=== PATIENT | female | born 1960 | race Caucasian/White ===

== ENCOUNTER → 2023-09-02 | Outpatient (CLI) | payer BC, SELFPAY ==
[2023-09-02 10:34] LABS: Absolute Neutrophil Count 3.4 X10^3/uL (2.0-7.7); Basophil# 0.05 X10^3/uL; Basophil% 0.9 % (0-1); Eosinophil# 0.18 X10^3/uL; Eosinophils% 3.4 % (0-5); Hematocrit 38.4 % (37-47); Hemoglobin 12.6 g/dL (12.0-15.0); Lymphocyte % 24.5 % (19-41); Mean Corp Hgb Conc 32.8 g/dL (32-36); Mean Corpuscular Hgb 30.9 pg (27.0-32.0); Mean Corpuscular Volume 94.1 fL (81-99); Mean Platelet Vol. 9.9 fl (6.2-12.0); Monocyte# 0.39 X10^3/uL; Monocyte% 7.3 % (0-10); NRBC Flagged by Analyzer 0 % (0-5); Neutrophil # 3.38 X10^3/uL (2.7-7.7); Neutrophil % 63.7 % (47-70); Platelet Count 276 K/mm3 (150-450); RBC Distribution Width CV 12.5 % (11.6-14.6); RBC Distribution Width SD 43.4 fl (35.1-43.9); Red Blood Count 4.08 M/mm3 (4.2-5.4); White Blood Count 5.3 K/mm3 (4.4-11.0)
[2023-09-02 10:59] LABS: ALB/GLOB Ratio 0.8 RATIO (0.9-2.4); AST(SGOT) 19 U/L (15-37); Alanine Aminotransfer ALT/SGPT 24 U/L (13-56); Albumin, Serum 3.5 g/dL (3.2-5.0); Alkaline Phosphatase 73 U/L (45-117); Anion Gap 7 (5-15); BUN 14 mg/dL (7-18); BUN/Creat Ratio 18.6 RATIO (10-20); Calcium,Total 8.9 mg/dL (8.5-10.1); Chloride 106 mmol/L (98-107); Cholesterol 202 mg/dL (200); Creatinine, Serum 0.75 mg/dL (0.55-1.02); EST Glomerular Filtration Rate 83 mL/min (>60); Est Glom Filt Rate - Afr Amer 100 mL/min (>60); Globulin 4.2 g/dL (2.2-4.2); Glucose 99 mg/dL (74-106); High Density Lipoprotein 84 mg/dL; Potassium 3.7 mmol/L (3.5-5.1); Protein, Total 7.7 g/dL (6.4-8.2); Sodium Level 139 mmol/L (136-145); Thyroid Stim Hormone (TSH) 0.81 uIU/mL (0.358-3.74); Triglycerides 66 mg/dL; Very Low Density Lipoprotein 13 mg/dL (5-40)
[2023-09-02 13:43] LABS: Vitamin D,25 Hydroxy 38.8 ng/mL
== END | disposition home or self-care (01) ==
PROVIDERS: PCP Family Medicine; Visit Provider Family Medicine
DX: Z13.220 Encounter for screening for lipoid disorders (principal); I10 Essential (primary) hypertension; Z78.0 Asymptomatic menopausal state
CPT/HCPCS: 36415; 80053; 80061; 82306; 84443; 85025

== ENCOUNTER → 2023-10-04 | Outpatient (CLI) | payer BC, SELFPAY ==
[2023-10-08 12:09] LABS: HPV APTIMA, High Risk Negative (Negative)
[2023-10-10 17:15] LABS: HPV Reflexed? YES, CHARGE PATIENT
== END | disposition home or self-care (01) ==
PROVIDERS: PCP Family Medicine; Visit Provider Nurse Practitioner Family
DX: Z01.419 Encounter for gynecological examination (general) (routine) without abnormal findings (principal)
CPT/HCPCS: 87624; 88175; G0145

== ENCOUNTER → 2023-10-27 | Outpatient (CLI) | payer BC, SELFPAY ==
--- NOTE | 2023-10-27 14:28 | BI_ITS ---
MAMMOGRAPHY - BILATERAL SCREENING REASON FOR EXAM: Female, 63 years old. Routine annual screening examination. PERTINENT HISTORY: Non-contributory. TECHNIQUE: Digital bilateral breast yvette (3D mammographic acquisition) in the CC and MLO projections. 2-D mediolateral oblique (MLO) and craniocaudad (CC) views of both breasts were obtained. CAD: Full Field Digital Mammography with Computer Added Detection was performed. COMPARISON: Comparison is made with prior outside examination dated February 19, 2008. FINDINGS: Breast Composition: There are scattered areas of fibroglandular density. There are no dominant masses or suspicious calcifications. Stable bilateral fat containing axillary lymph nodes. No other significant abnormalities are identified. BI/SCRN MAMM (CAD)W/YVETTE BILAT IMPRESSION: Stable bilateral screening mammogram. Yearly follow-up mammogram recommended. (A) ASSESSMENT CATEGORY: BIRADS Category 2: Benign. A letter regarding these results will be sent to the patient by the facility within 30 days. Approximately 10% of breast cancers are not detected by mammography. A normal mammogram should not delay biopsy of a clinically suspicious abnormality. [id number] Electronically Signed: Jeremy Almaguer MD at 15:08 EDT ,
== END | disposition home or self-care (01) ==
LOC: OPBI 14:26
PROVIDERS: PCP Family Medicine; Referring Provider Family Medicine; Visit Provider Family Medicine
DX: Z12.31 Encounter for screening mammogram for malignant neoplasm of breast (principal)
CPT/HCPCS: 77063; 77067

== ENCOUNTER 2024-02-13 07:38 | Day surgery (SDC) | payer BC, SELFPAY ==
[2024-02-13] VITALS (7 sets, daily range): BP systolic 115–171; BP diastolic 68–82; PULSE 71–76; RESP 16; TEMP 36.2–36.9; O2SAT 96–100
--- NOTE | 2024-02-13 | COLBX_PTH ---
PATIENT: DEN PEREIRA LOC: EN U#:[id number] AGE/SX: 63/F ROOM: RE02/13/[address]: Dr. Leora Parekh MD : 1960 BED: DIS: 02/13/2024 SPEC #: [id number] RECD: 02/13/24 13:09 STATUS: MIAH TOI #: [id number] NUSRAT: 02/13/24 00:[address]: Leora Parekh DEPT: SURGICAL PATHOLOGY RECD BY: Memo Saldana ENTERED: 02/13/24 13:09 SP TYPE: COLON BX OTHR DR: Jose Guadalupe Blake MD Tissues: Sigmoid colon biopsy Procedures: Surgery Specimen Level IV HEADER OPERATION: Colonoscopy with polypectomy PRE-OP DIAGNOSIS: Encounter for screening for malignant neoplasm of colon TISSUE SUBMITTED: Sigmoid colon polyp MICROSCOPIC DIAGNOSIS Sigmoid colon polyp, polypectomy: Tubular adenoma. 02/14/2024 MICROSCOPIC DESCRIPTION Slides are reviewed. GROSS DESCRIPTION Received in fixative is one container labeled with the patient's name and designated Sigmoid colon polyp. The specimen consists of one irregular fragment of light hercules soft tissue that measures 0.3 x 0.3 x 0.1 cm. The specimen is totally submitted in one cassette. 02/13/2024 TC:5 CPT:52841
--- NOTE | 2024-02-13 08:16 | PRE.ANES_ITS ---
ASA Classification* ASA Classification ASA Classification: 2 Assessment & Plan Anesthesia* Anesthesia Assessment Anesthesia Assessment: Discussed sedation and/or anesthesia options, risks, benefits, and alternatives with patient/parents/legal guardian/POA. Questions invited. The patient/parents/legal guardian/POA seems to understand and agrees to proceed with anesthesia plan. Reviewed the physical assessment, medical history, allergy history and patient home medications list prior to surgery/procedure/anesthetic and documented any changes. Performed airway and anesthesia risk assessments. Anesthesia Type Anesthesia Type: MAC Anesthesia Focused Assessment* Airway Assessment Mouth opens: >3 cm Mallampati Score: II Focused Labs Anesthesia Preop lab: CBC WBC 5.3 K/mm3 (4.4-11.0) 09/02/23 09:04 RBC 4.08 M/mm3 (4.2-5.4) L 09/02/23 09:04 Hgb 12.6 g/dL (12.0-15.0) 09/02/23 09:04 Hct 38.4 % (37-47) 09/02/23 09:04 Plt Count 276 K/mm3 (150-450) 09/02/23 09:04 CHEMISTRY Potassium 3.7 mmol/L (3.5-5.1) 09/02/23 09:04 Sodium 139 mmol/L (136-145) 09/02/23 09:04 BUN 14 mg/dL (7-18) 09/02/23 09:04 Creatinine 0.75 mg/dL (0.55-1.02) 09/02/23 09:04 Glucose 99 mg/dL (74-106) 09/02/23 09:04 TSH 0.81 uIU/mL (0.358-3.74) 09/02/23 09:04 COAG Pre-Assessment Diagnosis/Proposed Procedure Planned Operative Procedure(s): CSCOPE OA Anesthesia History Anesthesia History - 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 When Was Last Pacemaker Check QUESTION #4 FULL TEXT: You/Your Family Experience fever (hyperthermia) with Anesthesia Last Oral Intake Last Oral intake: Last Oral Intake NPO since Meds taken in AM with sips of water? Meds patient instructed to take am of surgery PONV PONV - deckhand fishing vessel: PONV - deckhand fishing vessel Female Yes 02/08/24 10:33 HX of Motion Sickness No 02/08/24 10:33 HX of N/V After Surgery No 02/08/24 10:33 Non-Smoker Yes 02/08/24 10:33 Duration of Surgery greater No 02/08/24 10:33 than 60 minutes Number of Risk Factors 2 02/08/24 10:33 PONV Score Moderate Risk 02/08/24 10:33 Height & Weight Height & Weight: Anesthesia: Height & Weight Height 5 ft 1 in 12/19/23 14:29 Respiratory Assessment Respiratory Assessment - deckhand fishing vessel: Respiratory Tract Infection Hx - deckhand fishing vessel Hx Respiratory Tract Infection No 02/08/24 10:33 STOP Sleep Apnea STOP Sleep Apnea - deckhand fishing vessel: STOP Sleep Apnea - deckhand fishing vessel Hx Hypertension No 02/08/24 10:33 Hx Sleep Apnea No 02/08/24 10:33 CPAP BIPAP Do you snore loudly (louder No 02/08/24 10:33 than talking or can be heard Do you often feel tired/ No 02/08/24 10:33 fatigued/ sleepy during daytime? Has anyone observed you stop No 02/08/24 10:33 breathing during sleep? STOP Results Negative 02/08/24 10:33 QUESTION #5 FULL TEXT : Do you snore loudly (louder than talking or can be heard through closed doors)? 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 Specify any problems Hx of Preganancy in last 3 No 02/08/24 10:33 Months Nurse Filling Out Transfusion DSCHRIBER 02/08/24 10:33 & Questions: Date: 02/08/24 02/08/24 10:33 Time: 10:34 02/08/24 10:33 Patient unable to answer at this time (ie. confused, unrespo /Reproduction History /Reproductive History - deckhand fishing vessel: /Reproductive Hx- deckhand fishing vessel Hx Now No 02/08/24 10:33 Gestational Age (in weeks): EDC: Hx Hx Para Hx Section SAB No 02/08/24 10:33 PFSH Medical History Wears glasses Post-menopausal Former smoker Hx of fracture of ankle Home Medications ?Medication ?Instructions ?Recorded ?Last Taken ?Type fexofenadine 60 mg-pseudoephedrine 1 tab PO DAILY 12/19/23 02/12/24 History ER 120 mg tablet,ext.release,12 hr (Johanna-D 12 Hour) Allergy/AdvReac Type Severity Reaction Status Date / Time No Known Allergies Allergy Verified 02/13/24 08:09 Social History household members: spouse number of children: 2 current occupational status: employed current occupation: [employer] Smoking Status: Former smoker alcohol intake: never substance use type: does not use Review of Systems (Anesthesia) ROS Narrative System reviewed and no additional complaints, except as documented.
--- NOTE | 2024-02-13 08:33 | H&P.OPEN ---
[facility] - General General Date of Service: 02/13/24 HPI Narrative DEN PEREIRA, is a 63 F who presents for screening colonoscopy. Patient never had previous colonoscopy. Patient denies any family history of colon cancer. Patient denies any chronic abdominal pain/nausea/vomiting/reflux. Patient has bowel movements daily denies any blood. [facility] Medical History Wears glasses Post-menopausal Former smoker Hx of fracture of ankle Home Medications ?Medication ?Instructions ?Recorded ?Last Taken ?Type fexofenadine 60 mg-pseudoephedrine 1 tab PO DAILY 12/19/23 02/12/24 History ER 120 mg tablet,ext.release,12 hr (Johanna-D 12 Hour) Allergy/AdvReac Type Severity Reaction Status Date / Time No Known Allergies Allergy Verified 02/13/24 08:09 Social History household members: spouse number of children: 2 current occupational status: employed current occupation: [employer] Smoking Status: Former smoker alcohol intake: never substance use type: does not use Past Medical/Surgical History Planned Operation Planned Operative Procedure(s): CSCOPE OA Previous Hospitalizations/Surgeries HX Hospitalizations: No Any Problems With Anesthesia: No You/Your Family Experience Fever (Hyperthermia) With Anes: No Cholinesterase deficiency: No Cardiovascular Hx Hypertension: No Respiratory Hx Sleep Apnea: No Hx Respiratory Tract Infection/Cold (presently): No Do You Snore Loudly (louder than talking or can be heard): No Do You Often Feel Tired/ Fatigued/ Sleepy Dring Daytime?: No Has Anyone Observed You Stop Breathing During Sleep?: No Result (for STOP score): Negative Smoking Status: Former smoker Neurological Does patient have nerve stimulator: No Reproduction : No Miscellaneous Recent Exposure to Contagious Disease: No Allergies No Known Allergies Allergy (Verified 02/13/24 08:09) Discharge Is Pt Admitted From a Fdc, or a Custodial: No After D/C, Where Do you Plan to Go: Return Home Vital Signs Vital Signs Vital Signs: 02/13/24 08:10 Respiratory Pattern Normal Physical Exam Const alert, oriented x3 and no apparent distress HEENT normocephalic and head/scalp atraumatic Resp normal respiratory effort Cardio regular rate GI soft to palpation and non-tender; Negative for non-distended Palpation: Negative for guarding Extremity no clubbing, cyanosis or edema Skin no rashes or lesions noted Neuro CN's II-XII intact bilaterally Psych mental status grossly normal Assessment & Plan Assessment/Plan (1) Encounter for screening for malignant neoplasm of colon: Surgery Risks - Colonoscopy I discussed with the patient the risks of the procedure: Yes Risks Include but are not Limited To: Risks include but are not limited to: Bleeding, perforation requiring further surgery, inability to complete colonoscopy requiring barium enema.
--- NOTE | 2024-02-13 09:34 | OP.CCLET_ITS ---
02/13/2024 Jose Guadalupe Blake Md Re : Colonoscopy procedure for Tia Nicholas Dear Hayden This procedure was performed on Tuesday, February 13, 2024. My impressions and recommendations are as follows: Impressions : - Hemorrhoids found on perianal exam. - Non-bleeding external hemorrhoids. - One less than 5 mm polyp in the sigmoid colon, removed with a hot snare. Resected and retrieved. - The examination was otherwise normal on direct and retroflexion views. Recommendations : - Discharge patient to home. - Resume previous diet. - Continue present medications. - Await pathology results. - Repeat colonoscopy in 5 years for surveillance based on pathology results. My findings are described in the full procedure note, which is enclosed. If I can be of further assistance, please feel free to contact me at Doctor phone number(s): , Work: . Sincerely, MD Leora Garcia MD 02/13/2024 9:33:47 AM This report has been signed electronically.
--- NOTE | 2024-02-13 09:34 | OP.COLON_ITS ---
Patient Name: Tia Nicholas Procedure Date: 02/13/2024 9:08 AM Date of : 1960 Age: 63 Procedure: Colonoscopy Indications: Screening for colorectal malignant neoplasm Providers: Leora Parekh MD Medicines: Monitored Anesthesia Care Patient Profile: This is a 63 year old female. Last Colonoscopy: none. The patient's first colonoscopy is today. Complications: No immediate complications. Procedure: Pre-Anesthesia Assessment: - Prior to the procedure, a History and Physical was performed, and patient medications and allergies were reviewed. The patient's tolerance of previous anesthesia was also reviewed. The risks and benefits of the procedure and the sedation options and risks were discussed with the patient. All questions were answered, and informed consent was obtained. Prior Anticoagulants: The patient has taken no anticoagulant or antiplatelet agents. ASA Grade Assessment: Per anesthesia. After reviewing the risks and benefits, the patient was deemed in satisfactory condition to undergo the procedure. After I obtained informed consent, the scope was passed under direct vision. Throughout the procedure, the patient's blood pressure, pulse, and oxygen saturations were monitored continuously. The was introduced through the anus and advanced to the cecum, identified by the appendiceal orifice, ileocecal valve and palpation. The colonoscopy was performed without difficulty. The patient tolerated the procedure well. The quality of the bowel preparation was good. Scope In: 9:17:09 AM Scope Withdrawal Time 0 hours 6 minutes 57 seconds Scope Out: 9:27:43 AM Total Procedure Duration Time 0 hours 10 minutes 34 seconds Findings: Hemorrhoids were found on perianal exam. Non-bleeding external hemorrhoids were found. The hemorrhoids were small. A less than 5 mm polyp was found in the sigmoid colon. The polyp was sessile. The polyp was removed with a hot snare. Resection and retrieval were complete. The exam was otherwise without abnormality on direct and retroflexion views. Impression: - Hemorrhoids found on perianal exam. - Non-bleeding external hemorrhoids. - One less than 5 mm polyp in the sigmoid colon, removed with a hot snare. Resected and retrieved. - The examination was otherwise normal on direct and retroflexion views. Recommendation: - Discharge patient to home. - Resume previous diet. - Continue present medications. - Await pathology results. - Repeat colonoscopy in 5 years for surveillance based on pathology results. Procedure Code(s): --- Professional --- 25847, PT, Colonoscopy, flexible; with removal of tumor(s), polyp(s), or other lesion(s) by snare technique Diagnosis Code(s): --- Professional --- Z12.11, Encounter for screening for malignant neoplasm of colon K64.4, Residual hemorrhoidal skin tags D12.5, Benign neoplasm of sigmoid colon CPT copyright 2021 [employer] [place] [employer]. All rights reserved. The codes documented in this report are preliminary and upon cold mill supervisor review may be revised to meet current compliance requirements. MD Leora Garcia MD 02/13/2024 9:33:47 AM This report has been signed electronically. Number of Addenda: 0 Note Initiated On: 02/13/2024 9:08 AM
--- NOTE | 2024-02-13 09:35 | PCM.POST.ANE ---
Anesthesia: Postop Eval I Current Vital Signs Temperature: 97.2 F Pulse Rate: 74 Blood Pressure: 115/78 Respiratory Rate: 16 Pulse Ox: 100 Oxygen Delivery Method: Room Air Assessment Airway patent: Yes Spontaneous unlabored respirations: Yes Mental status: Awake and Calm nausea: No Vomiting: No Anesthesia Complication: No Fluid Hydration Crystalloid volume administer (ml): 40 Total IV fluid infused: 40 Progress Note Anesthesia document: Postop Eval 1 completed: Yes
--- NOTE | 2024-02-13 13:15 | PCM.POSTANE2 ---
Anesthesia Postop Eval I Sum Postop Eval Completion status Anesthesia document: Postop Eval 1 completed: Yes Anesthesia Postop Eval I Summary Anesthesia Postop Eval I Summary: Anesthesia Postop Eval I: Assessment Summary Airway patent Yes 02/13/24 09:36 [email or web address] Spontaneous unlabored Yes 02/13/24 09:36 [email or web address] respirations Mental status Awake,Calm 02/13/24 09:36 [email or web address] nausea No 02/13/24 09:36 [email or web address] Vomiting No 02/13/24 09:36 [email or web address] Anesthesia Postop Eval I: Fluid Summary Crystalloid volume administer 40 02/13/24 09:36 [email or web address] (ml) Colloids volume administered ( ml) Blood Product volume administered (ml) Total IV fluid infused 40 02/13/24 09:36 [email or web address] Anesthesia Postop Eval I: Summary Notes Anesthesia Complication No 02/13/24 09:36 [email or web address] Anesthesia Complication Comment: Post-operative progress note Anesthesia: Postop Eval II Evaluation Mental status: Awake and Calm Pain Level: 0 nausea: No Vomiting: No Complications Anesthesia Complication: No
== END 2024-02-13 10:11 | disposition home or self-care (01) ==
LOC: EN 07:38 → AC 07:39
PROVIDERS: PCP Family Medicine; Referring Provider Family Medicine; Visit Provider Surgery
PROC: 0DJD8ZZ Inspection of Lower Intestinal Tract, Via Natural or Artificial Opening Endoscopic (ICD-10-PCS; CPT 45378; principal; 2024-02-13 09:10)
DX: Z12.11 Encounter for screening for malignant neoplasm of colon (principal); K64.4 Residual hemorrhoidal skin tags; D12.5 Benign neoplasm of sigmoid colon; Z87.891 Personal history of nicotine dependence
CPT/HCPCS: 45385; 88305; A4216; J2405

== ENCOUNTER 2024-10-29 08:08 | Outpatient (CLI) | payer BC, SELFPAY ==
--- OUTSIDE RECORDS SUMMARY | 2024-10-29 09:20 | XMS RPT_ITS | CCD ---
Author Organization [facility] [place] [facility] Team Providers Care Sales And Marketing Vice President Name Role Phone Law Betsey Attending Unavailable Hayden, Chalon Primary Care Unavailable Hayden, Chalon Primary Care Unavailable Robotham, Leora Consulting Unavailable Robotham, Leora Attending Unavailable Hayden, Chalon Referring Unavailable Hayden, Chalon Referring Unavailable Hayden, Chalon Primary Care Unavailable Robotham, Leora Attending Unavailable Carlton DRAPERY ESTIMATOR, Joann Attending Unavailable Jolliff, Temi S Primary Care Unavailable Hayden, Chalon Referring Unavailable Hayden, Chalon Primary Care Unavailable Hayden, Chalon Attending Unavailable Jolliff, Temi S Primary Care Unavailable Hayden, Chalon Attending Unavailable Problems Problem Classification Problem Date Documented Da te Episodic/Chronic Other screening for suspected conditions (not mental disorders or infectious disease) (4 sources) Encounter for screening for malignant neoplasm of colon; Translations: [Encounter for screening mammogram for malignant neoplasm of breast] Onset: 09-10-2023 Episodic Results Test Name Value Interpretation Reference Range Facil ity Colonoscopy Reporton 024 Colonoscopy Report [facility] Medical Records Department [address] [facility] [place] [address] Colonoscopy Report MR#: [id number] Acct: [id number] Name: DEN NICHOLAS Rep #: [id number] : 1960 63 From: Leora Parekh MD PCP: Dr. Jose Guadalupe Blake MD Status:[facility] Patient Name: Den Nicholas Procedure Date: 02/13/2024 9:08 AM Date of : 1960 Age: 63 Procedure: Colonoscopy Indications: Screening for colorectal malignant neoplasm Providers: Leora Parekh MD Medicines: Monitored Anesthesia Care Patient Profile: This is a 63 year old female. Last Colonoscopy: none. The patient's first colonoscopy is today. Complications: No immediate complications. Procedure: Pre-Anesthesia Assessment: - Prior to the procedure, a History and Physical was performed, and patient medications and allergies were reviewed. The patient's tolerance of previous anesthesia was also reviewed. The risks and benefits of the procedure and the sedation options and risks were discussed with the patient. All questions were answered, and informed consent was obtained. Prior Anticoagulants: The patient has taken no anticoagulant or antiplatelet agents. ASA Grade Assessment: Per anesthesia. After reviewing the risks and benefits, the patient was deemed in satisfactory condition to undergo the procedure. After I obtained informed consent, the scope was passed under direct vision. Throughout the procedure, the patient's blood pressure, pulse, and oxygen saturations were monitored continuously. The was introduced through the anus and advanced to the cecum, identified by the appendiceal orifice, ileocecal valve and palpation. The colonoscopy was performed without difficulty. The patient tolerated the procedure well. The quality of the bowel preparation was good. Scope In: 9:17:09 AM Scope Withdrawal Time 0 hours 6 minutes 57 seconds Scope Out: 9:27:43 AM Total Procedure Duration Time 0 hours 10 minutes 34 seconds Findings: Hemorrhoids were found on perianal exam. Non-bleeding external hemorrhoids were found. The hemorrhoids were small. A less than 5 mm polyp was found in the sigmoid colon. The polyp was sessile. The polyp was removed with a hot snare. Resection and retrieval were complete. The exam was otherwise without abnormality on direct and retroflexion views. Impression: - Hemorrhoids found on perianal exam. - Non-bleeding external hemorrhoids. - One less than 5 mm polyp in the sigmoid colon, removed with a hot snare. Resected and retrieved. - The examination was otherwise normal on direct and retroflexion views. Recommendation: - Discharge patient to home. - Resume previous diet. - Continue present medications. - Await pathology results. - Repeat colonoscopy in 5 years for surveillance based on pathology results. Procedure Code(s): --- Professional --- 29149, PT, Colonoscopy, flexible; with removal of tumor(s), polyp(s), or other lesion(s) by snare technique Diagnosis Code(s): --- Professional --- Z12.11, Encounter for screening for malignant neoplasm of colon K64.4, Residual hemorrhoidal skin tags D12.5, Benign neoplasm of sigmoid colon CPT copyright 2021 [employer]. All rights reserved. The codes documented in this report are preliminary and upon antique collector review may be revised to meet current compliance requirements. MD Leora Garcia MD 02/13/2024 9:33:47 AM This report has been signed electronically. Number of Addenda: 0 Note Initiated On: 02/13/2024 9:08 AM 02/13/24933 Date Leora Snider Signature: Date (if indicated) CC: Dr. Jose Guadalupe Blake MD; Dr. Leora Parekh MD Date Dictated: 02/13/24907 Date Transcribed: Footwear Sales Representative: KIRK [facility] MR/POSTOP.[facility] 02-13-2024 MR/POSTOP.[facility] Medical Records Department [address] [place] [address] Anesthesia Postop Eval I 02/13/24934 MR#: [id number] Acct: [id number] Name: DEN NICHOLAS Rep #: [id number] : 1960 63 From: Sammy Diaz PCP: Dr. Jose Guadalupe Blake MD Status:[facility] Y Race: C Location: [place] [address] Anesthesia: Postop Eval I Current Vital Signs Temperature: 97.2 F Pulse Rate: 74 Blood Pressure: 115/78 Respiratory Rate: 16 Pulse Ox: 100 Oxygen Delivery Method: Room Air Assessment Airway patent: Yes Spontaneous unlabored respirations: Yes Mental status: Awake and Calm nausea: No Vomiting: No Anesthesia Complication: No Fluid Hydration Crystalloid volume administer (ml): 40 Total IV fluid infused: 40 Progress Note Anesthesia document: Postop Eval 1 completed: Yes 02/13/24935 Date Sammy Snider Signature: Date CC: Signed Normal [facility] MR/[id number] 02-13-2024 MR/POSTOPAN2 [facility] Medical Records Department [address] [facility] [place] [address] Anesthesia Postop Eval II 02/13/24 1315 MR#: [id number] Acct: [id number] Name: DEN NICHOLAS Rep #: [id number] : 1960 63 From: Luigi Nicole MD PCP: Dr. Jose Guadalupe Blake MD Status:[facility] Y Race: C Location: [place] Anesthesia Postop Eval I Sum Postop Eval Completion status Anesthesia document: Postop Eval 1 completed: Yes Anesthesia Postop Eval I Summary Anesthesia Postop Eval I Summary: Anesthesia Postop Eval I: Assessment Summary Airway patent Yes 02/13/24 09:36 [email or web address] Spontaneous unlabored Yes 02/13/24 09:36 [email or web address] respirations Mental status Awake,Calm 02/13/24 09:36 [email or web address] nausea No 02/13/24 09:36 [email or web address] Vomiting No 02/13/24 09:36 [email or web address] Anesthesia Postop Eval I: Fluid Summary Crystalloid volume administer 40 02/13/24 09:36 [email or web address] (ml) Colloids volume administered ( ml) Blood Product volume administered (ml) Total IV fluid infused 40 02/13/24 09:36 [email or web address] Anesthesia Postop Eval I: Summary Notes Anesthesia Complication No 02/13/24 09:36 [email or web address] Anesthesia Complication Comment: Post-operative progress note Anesthesia: Postop Eval II Evaluation Mental status: Awake and Calm Pain Level: 0 nausea: No Vomiting: No Complications Anesthesia Complication: No 02/13/245 Date Luigi Snider Signature: Date CC: Signed Normal [facility] Surgery Specimen Level Alanis 02-13-2024 Surgery Specimen Level IV ---- Patient Age/Sex Location Account Attending Physician ---- DEN NICHOLAS 63/F EN [id number] Dr. Leora Parekh MD ---- Specimen: [id number] Received: 02/13/24 Status: MIAH Pulido Num: [id number] Spec Type: COLON BX Subm Dr: Dr. Leora Parekh MD HEADER OPERATION: Colonoscopy with polypectomy PRE-OP DIAGNOSIS: Encounter for screening for malignant neoplasm of colon TISSUE SUBMITTED: Sigmoid colon polyp ---- MICROSCOPIC DIAGNOSIS Sigmoid colon polyp, polypectomy: Tubular adenoma. PW. 02/14/2024 MICROSCOPIC DESCRIPTION Slides are reviewed. GROSS DESCRIPTION Received in fixative is one container labeled with the patient's name and designated Sigmoid colon polyp. The specimen consists of one irregular fragment of light hercules soft tissue that measures 0.3 x 0.3 x 0.1 cm. The specimen is totally submitted in one cassette. SJ. 02/13/2024 TC:5 CPT:81605 ---- Patient Age/Sex Location Account Attending Physician ---- DEN NICHOLAS 63/F EN [id number] Dr. Leora Parekh MD ---- Signed (signature on file) Dr. Ashanti Lopez MD 02/14/24 1249 ---- Normal [facility] Comment on above: Performed By: #### P SUIV ####[facility] [id number] [facility] [address] [place], [place], [address] SCRN MAMM (CAD)W/YVETTE BILATo n 10-27-2023 SCRN MAMM (CAD)W/YVETTE BILAT [facility] Imaging Services [address] [place], [place] [address] SCRN MAMM (CAD)W/YVETTE BILAT MR#: [id number] Acct: [id number] Name: DEN NICHOLAS Rep #: [id number] : 1960 F 63 From: Jeremy do MD PCP: Dr. Jose Guadalupe Blake MD Status: [facility] Study: SCRN MAMM (CAD)W/YVETTE BILAT Date of Exam: 10/09 12/02 Exam# [id number] Ordering Dr: Jose Guadalupe Blake [place] [id number] MAMMOGRAPHY - BILATERAL SCREENING REASON FOR EXAM: Female, 63 years old. Routine annual screening examination. PERTINENT HISTORY: Non-contributory. TECHNIQUE: Digital bilateral breast yvette (3D mammographic acquisition) in the CC and MLO projections. 2-D mediolateral oblique (MLO) and craniocaudad (CC) views of both breasts were obtained. CAD: Full Field Digital Mammography with Computer Added Detection was performed. COMPARISON: Comparison is made with prior outside examination dated February 19, 2008. FINDINGS: Breast Composition: There are scattered areas of fibroglandular density. There are no dominant masses or suspicious calcifications. Stable bilateral fat containing axillary lymph nodes. No other significant abnormalities are identified. BI/SCRN MAMM (CAD)W/YVETTE BILAT IMPRESSION: Stable bilateral screening mammogram. Yearly follow-up mammogram recommended. (A) ASSESSMENT CATEGORY: BIRADS Category 2: Benign. A letter regarding these results will be sent to the patient by the facility within 30 days. Approximately 10% of breast cancers are not detected by mammography. A normal mammogram should not delay biopsy of a clinically suspicious abnormality. [id number] Electronically Signed: Jeremy Almaguer MD at 15:08 EDT Reading Location ID and State: [address] [place] [address] , Service support , CC: Dr. Jose Guadalupe Blake MD Footwear Sales Representative: Signed Normal [facility] PAP IG HPV HR APTIMAon 10-07 ADEQ Comment Normal . [facility] Comment on above: Order Comment: Speci men Comment: [id number] Specimen Comment: Source.............Cervix;Endocervix Specimen Comment: Other..............Post Menopausal Specimen Comment: No. of containers..01 ThinPrep Vial Result Comment: Sati sfactory for evaluation. Endocervical component may not be distinguished in cases of atrophy. Performed By: #### L 7400.0377 #### [facility] Laboratory [address] [place], [address] COMM . Normal . [facility] Comment on above: Order Comment: Speci men Comment: [id number] Specimen Comment: Source.............Cervix;Endocervix Specimen Comment: Other..............Post Menopausal Specimen Comment: No. of containers..01 ThinPrep Vial Performed By: #### L 7400.0377 #### [facility] Laboratory [address] [place], [place], [id number] COMMENT Comment Normal . [facility] Comment on above: Order Comment: Speci men Comment: [id number] Specimen Comment: Source.............Cervix;Endocervix Specimen Comment: Other..............Post Menopausal Specimen Comment: No. of containers..01 ThinPrep Vial Result Comment: This liquid based ThinPrep(R) pap test was screened with the use of an image guided system. Performed By: #### L 7400.0377 #### [facility] [address] [place], [address] DIAG Comment Normal . [facility] Comment on above: Order Comment: Speci men Comment: [id number] Specimen Comment: Source.............Cervix;Endocervix Specimen Comment: Other..............Post Menopausal Specimen Comment: No. of containers..01 ThinPrep Vial Result Comment: NEGA TIVE FOR INTRAEPITHELIAL LESION OR MALIGNANCY. CELLULAR CHANGES ASSOCIATED WITH ATROPHY ARE PRESENT. Performed By: #### L 7400.0377 #### [facility] [address] [place], [place], [address] HPV APTIMA, HR Negative Normal Negative [facility] Comment on above: Order Comment: Speci men Comment: [id number] Specimen Comment: Source.............Cervix;Endocervix Specimen Comment: Other..............Post Menopausal Specimen Comment: No. of containers..01 ThinPrep Vial Result Comment: This nucleic acid amplification test detects fourteen high- risk HPV types (16,18,31,33,35,39,45,51,52,56,58,59,66,68) without differentiation. Performed at: - [address] [id number] Photoengraving Apprentice: Ashley Garza MD, Phone: [phone] Performed at: = - [facility], [place] [id number] Photoengraving Apprentice: Ashley Garza MD, Phone: [phone] Performed By: #### L 7400.0377 #### [facility] [address] [place], [place], [address] PAPSMR Comment Normal . [facility] Comment on above: Order Comment: Speci men Comment: [id number] Specimen Comment: Source.............Cervix;Endocervix Specimen Comment: Other..............Post Menopausal Specimen Comment: No. of containers..01 ThinPrep Vial Result Comment: The Pap smear is a screening test designed to aid in the detection of premalignant and malignant conditions of the uterine cervix. It is not a diagnostic procedure and should not be used as the sole means of detecting cervical cancer. Both false-positive and false-negative reports do occur. Performed By: #### L 7400.0377 #### [facility] Laboratory [address] [place], [place], [address] PERFORM Comment Normal . [facility] Comment on above: Order Comment: Speci men Comment: [id number] Specimen Comment: Source.............Cervix;Endocervix Specimen Comment: Other..............Post Menopausal Specimen Comment: No. of containers..01 ThinPrep Vial Result Comment: Grace Matute, Habilitation Assistant (ASCP) Performed By: #### L 7400.0377 #### [facility] Laboratory [address] [place], [place], [address] CBC W/Diff, Automatedon 08-10 Absolute Lymph 1.30 X10 3/uL Normal 0.83-4.51 [facility] Comment on above: Order Comment: Order Date: 08/31/23 Order Info: 0184-1 - CBCD Performed By: #### L 506.1000, L501.9520, L500.4100, L100.0100, L500.4050 #### [facility] Laboratory [address] [place], [address] Absolute Neut 3.4 X10 3/uL Normal 2.0-7.7 [facility] Comment on above: Order Comment: Order Date: 08/31/23 Order Info: 0184- - CBCD Performed By: #### L 506.1000, L501.9520, L500.4100, L100.0100, L500.4050 #### [facility] Laboratory [address] [place], [address] Basophils/100 WBC (Bld) 0.9 % Normal 0-1 [facility] Comment on above: Order Comment: Order Date: 08/31/23 Order Info: 0184- - CBCD Performed By: #### L 506.1000, L501.9520, L500.4100, L100.0100, L500.4050 #### [facility] [address] [place], [address] Eosinophils/100 WBC (Bld) 3.4 % Normal 0-5 [facility] Comment on above: Order Comment: Order Date: 08/31/23 Order Info: 0184-1 - CBCD Performed By: #### L 506.1000, L501.9520, L500.4100, L100.0100, L500.4050 #### [facility] [address] [place], [address] Erythrocyte distribution width (RBC) [Ratio] 12.5 % Normal 11.6-14.6 [facility] Comment on above: Order Comment: Order Date: 08/31/23 Order Info: 0184-1 - CBCD Performed By: #### L 506.1000, L501.9520, L500.4100, L100.0100, L500.4050 #### [facility] [address] [place], [address] Hematocrit (Bld) [Volume fraction] 38.4 % Normal 37-47 [facility] Comment on above: Order Comment: Order Date: 08/31/23 Order Info: 0184-1 - CBCD Performed By: #### L 506.1000, L501.9520, L500.4100, L100.0100, L500.4050 #### [facility] [address] [place], [address] Hemoglobin (Bld) [Mass/Vol] 12.6 g/dL Normal 12.0-15.0 [facility] Comment on above: Order Comment: Order Date: 08/31/23 Order Info: 0184-1 - CBCD Performed By: #### L 506.1000, L501.9520, L500.4100, L100.0100, L500.4050 #### [facility] [address] [place], [address] IG% 0.200 Normal 0.0-0.9 [facility] Comment on above: Order Comment: Order Date: 08/31/23 Order Info: 0184-1 - CBCD Result Comment: IG% - Immature Granulocytes (promyelocytes, myelocytes and metamyelocytes) > 1% indicates that a LEFT SHIFT is Present. Performed By: #### L 506.1000, L501.9520, L500.4100, L100.0100, L500.4050 #### [facility] [address] [place], [address] Lymphocytes/100 WBC (Bld) 24.5 % Normal 19-41 [facility] Comment on above: Order Comment: Order Date: 08/31/23 Order Info: 0184-1 - CBCD Performed By: #### L 506.1000, L501.9520, L500.4100, L100.0100, L500.4050 #### [facility] [address] [place], [address] MCH (RBC) [Entitic mass] 30.9 pg Normal 27.0-32.0 [facility] Comment on above: Order Comment: Order Date: 08/31/23 Order Info: 018- - CBCD Performed By: #### L 506.1000, L501.9520, L500.4100, L100.0100, L500.4050 #### [facility] [address] [place], [address] MCHC (RBC) [Mass/Vol] 32.8 g/dL Normal 32-36 [facility] Comment on above: Order Comment: Order Date: 08/31/23 Order Info: 018- - CBCD Performed By: #### L 506.1000, L501.9520, L500.4100, L100.0100, L500.4050 #### [facility] [address] [place], [address] MCV (RBC) [Entitic vol] 94.1 fL Normal 81-99 [facility] Comment on above: Order Comment: Order Date: 08/31/23 Order Info: 018- - CBCD Performed By: #### L 506.1000, L501.9520, L500.4100, L100.0100, L500.4050 #### [facility] [address] [place], [address] Monocytes/100 WBC (Bld) 7.3 % Normal 0-10 [facility] Comment on above: Order Comment: Order Date: 08/31/23 Order Info: 018- - CBCD Performed By: #### L 506.1000, L501.9520, L500.4100, L100.0100, L500.4050 #### [facility] [address] [place], [address] Neutrophils/100 WBC (Bld) 63.7 % Normal 47-70 [facility] Comment on above: Order Comment: Order Date: 08/31/23 Order Info: 0184-1 - CBCD Performed By: #### L 506.1000, L501.9520, L500.4100, L100.0100, L500.4050 #### [facility] [address] [place], [address] Nucleated RBC (Bld) [#/Vol] 0 10*3/uL Normal 0-5 [facility] Comment on above: Order Comment: Order Date: 08/31/23 Order Info: 0184-1 - CBCD Performed By: #### L 506.1000, L501.9520, L500.4100, L100.0100, L500.4050 #### [facility] [address] [place], [address] Platelet mean volume (Bld) [Entitic vol] 9.9 fL Normal 6.2-12.0 [facility] Comment on above: Order Comment: Order Date: 08/31/23 Order Info: 0184-1 - CBCD Performed By: #### L 506.1000, L501.9520, L500.4100, L100.0100, L500.4050 #### [facility] [address] [place], [address] Platelets (Bld) [#/Vol] 276 10*3/uL Normal 150-450 [facility] Comment on above: Order Comment: Order Date: 08/31/23 Order Info: 0184-1 - CBCD Performed By: #### L 506.1000, L501.9520, L500.4100, L100.0100, L500.4050 #### [facility] [address] [place], [address] RBC (Bld) [#/Vol] 4.08 10*6/uL Low 4.2-5.4 [facility] Comment on above: Order Comment: Order Date: 08/31/23 Order Info: 0184-1 - CBCD Performed By: #### L 506.1000, L501.9520, L500.4100, L100.0100, L500.4050 #### [facility] [address] [place], [address] RDW SD 43.4 fl Normal 35.1-43.9 [facility] Comment on above: Order Comment: Order Date: 08/31/23 Order Info: 0184-1 - CBCD Performed By: #### L 506.1000, L501.9520, L500.4100, L100.0100, L500.4050 #### [facility] [address] [place], [address] WBC (Bld) [#/Vol] 5.3 10*3/uL Normal 4.4-11.0 [facility] Comment on above: Order Comment: Order Date: 08/31/23 Order Info: 0184-1 - CBCD Performed By: #### L 506.1000, L501.9520, L500.4100, L100.0100, L500.4050 #### [facility] [address] [place], [address] Comprehensive Metabolic Prof ilon 09-02-2023 Albumin [Mass/Vol] 3.5 g/dL Normal 3.2-5.0 [facility] Comment on above: Order Comment: Order Date: 08/31/23 Order Info: [id number] - CMP Order Info: [id number] - LIPID Order Info: [id number] - TSH Performed By: #### L 506.1000, L501.9520, L500.4100, L100.0100, L500.4050 #### [facility] [address] [place], [address] Albumin/Globulin [Mass ratio] 0.8 {ratio} Low 0.9-2.4 [facility] Comment on above: Order Comment: Order Date: 08/31/23 Order Info: 0786-1 - CMP Order Info: [id number] - LIPID Order Info: [id number] - TSH Performed By: #### L 506.1000, L501.9520, L500.4100, L100.0100, L500.4050 #### [facility] [address] [place], [address] ALK P 73 U/L Normal 45-117 [facility] Comment on above: Order Comment: Order Date: 08/31/23 Order Info: 0786-1 - CMP Order Info: [id number] - LIPID Order Info: [id number] - TSH Performed By: #### L 506.1000, L501.9520, L500.4100, L100.0100, L500.4050 #### [facility] [address] [place], [address] ALT [Catalytic activity/Vol] 24 U/L Normal 13-56 [facility] Comment on above: Order Comment: Order Date: 08/31/23 Order Info: 0786-1 - CMP Order Info: [id number] - LIPID Order Info: [id number] - TSH Performed By: #### L 506.1000, L501.9520, L500.4100, L100.0100, L500.4050 #### [facility] [address] [place], [address] AST [Catalytic activity/Vol] 19 U/L Normal 15-37 [facility] Comment on above: Order Comment: Order Date: 08/31/23 Order Info: [id number] - CMP Order Info: [id number] - LIPID Order Info: [id number] - TSH Performed By: #### L 506.1000, L501.9520, L500.4100, L100.0100, L500.4050 #### [facility] [facility] [address] [place], [address] Bilirubin [Mass/Vol] 1.00 mg/dL Normal 0.20-1.00 [facility] Comment on above: Order Comment: Order Date: 08/31/23 Order Info: 785-04 - CMP Order Info: - LIPID Order Info: [id number] - TSH Result Comment: For patients on eltrombopag therapy, use of [facility] TBIL is not recommended. Performed By: #### L 506.1000, L501.9520, L500.4100, L100.0100, L500.4050 #### [facility] [address] [place], [address] BUN/CRE 18.6 RATIO Normal 10-20 [facility] Comment on above: Order Comment: Order Date: 08/31/23 Order Info: 785-04 - CMP Order Info: - LIPID Order Info: [id number] - TSH Performed By: #### L 506.1000, L501.9520, L500.4100, L100.0100, L500.4050 #### [facility] [address] [place], [address] CA,Total 8.9 mg/dL Normal 8.5-10.1 [facility] Comment on above: Order Comment: Order Date: 08/31/23 Order Info: 785-04 - CMP Order Info: - LIPID Order Info: [id number] - TSH Performed By: #### L 506.1000, L501.9520, L500.4100, L100.0100, L500.4050 #### [facility] [address] [place], [address] Chloride [Moles/Vol] 106 mmol/L Normal 98-107 [facility] Comment on above: Order Comment: Order Date: 08/31/23 Order Info: 785-04 - CMP Order Info: - LIPID Order Info: [id number] - TSH Performed By: #### L 506.1000, L501.9520, L500.4100, L100.0100, L500.4050 #### [facility] [address] [place], [address] CO2 [Moles/Vol] 26.0 mmol/L Normal 21.0-32.0 [facility] Comment on above: Order Comment: Order Date: 08/31/23 Order Info: 785- - CMP Order Info: - LIPID Order Info: [id number] - TSH Performed By: #### L 506.1000, L501.9520, L500.4100, L100.0100, L500.4050 #### [facility] [address] [place], [place], [address] Creatinine [Mass/Vol] 0.75 mg/dL Normal 0.55-1.02 [facility] Comment on above: Order Comment: Order Date: 08/31/23 Order Info: 785-04 - CMP Order Info: - LIPID Order Info: 3015-06 - TSH Result Comment: The validity of the calculated GFR GFRAA in patients over 70 years has not been determined. Clinical correlation is essential. Performed By: #### L 506.1000, L501.9520, L500.4100, L100.0100, L500.4050 #### [facility] [address] [place], [place], [id number] EST GFR - AA 100 mL/min Normal >60 [facility] Comment on above: Order Comment: Order Date: 08/31/23 Order Info: 785-04 - CMP Order Info: - LIPID Order Info: [id number] - TSH Result Comment: Afri can Haitian GFR Calc Performed By: #### L 506.1000, L501.9520, L500.4100, L100.0100, L500.4050 #### [facility] [address] [place], [place], [address] GAP 7 Normal 5-15 [facility] Comment on above: Order Comment: Order Date: 08/31/23 Order Info: 785-04 - CMP Order Info: [id number] - LIPID Order Info: 3015-06 - TSH Performed By: #### L 506.1000, L501.9520, L500.4100, L100.0100, L500.4050 #### [facility] [address] [place], [address] GFR/1.73 sq M.predicted among non-blacks MDRD (S/P/Bld) [Vol rate/Area] 83 mL/min/{1.73_m2} Normal >60 [facility] Comment on above: Order Comment: Order Date: 08/31/23 Order Info: 0786- - CMP Order Info: - LIPID Order Info: 3 - TSH Result Comment: Non- GFR Calc Performed By: #### L 506.1000, L501.9520, L500.4100, L100.0100, L500.4050 #### [facility] [address] [place], [address] Globulin (S) [Mass/Vol] 4.2 g/dL Normal 2.2-4.2 [facility] Comment on above: Order Comment: Order Date: 08/31/23 Order Info: 0786- - CMP Order Info: [id number] - LIPID Order Info: 3 - TSH Performed By: #### L 506.1000, L501.9520, L500.4100, L100.0100, L500.4050 #### [facility] [address] [place], [address] Glucose [Mass/Vol] 99 mg/dL Normal 74-106 [facility] Comment on above: Order Comment: Order Date: 08/31/23 Order Info: 0786- - CMP Order Info: [id number] - LIPID Order Info: 3013 - TSH Performed By: #### L 506.1000, L501.9520, L500.4100, L100.0100, L500.4050 #### [facility] [address] [place], [address] Potassium [Moles/Vol] 3.7 mmol/L Normal 3.5-5.1 [facility] Comment on above: Order Comment: Order Date: 08/31/23 Order Info: 0786-1 - CMP Order Info: - LIPID Order Info: [id number] - TSH Performed By: #### L 506.1000, L501.9520, L500.4100, L100.0100, L500.4050 #### [facility] [address] [place], [address] Sodium [Moles/Vol] 139 mmol/L Normal 136-145 [facility] Comment on above: Order Comment: Order Date: 08/31/23 Order Info: 07 - CMP Order Info: [id number] - LIPID Order Info: 3015-06 - TSH Performed By: #### L 506.1000, L501.9520, L500.4100, L100.0100, L500.4050 #### [facility] [address] [place], [address] T PROT 7.7 g/dL Normal 6.4-8.2 [facility] Comment on above: Order Comment: Order Date: 08/31/23 Order Info: 0786 - CMP Order Info: - LIPID Order Info: 3015-06 - TSH Performed By: #### L 506.1000, L501.9520, L500.4100, L100.0100, L500.4050 #### [facility] [address] [place], [address] Urea nitrogen [Mass/Vol] 14 mg/dL Normal 7-18 [facility] Comment on above: Order Comment: Order Date: 08/31/23 Order Info: 0786- - CMP Order Info: [id number] - LIPID Order Info: 3015-06 - TSH Performed By: #### L 506.1000, L501.9520, L500.4100, L100.0100, L500.4050 #### [facility] [address] [place], [address] Lipid Profileon 09-02-2023 Cholesterol [Mass/Vol] 202 mg/dL High 200 [facility] Comment on above: Order Comment: Order Date: 08/31/23 Order Info: 785- - CMP Order Info: - LIPID Order Info: 3015-06 - TSH Result Comment: <200 mg/dL Desirable 200-240 mg/dL Borderline >240 mg/dL High Risk Performed By: #### L 506.1000, L501.9520, L500.4100, L100.0100, L500.4050 #### [facility] [address] [place], [address] Cholesterol in HDL [Mass/Vol] 84 mg/dL Normal [facility] Comment on above: Order Comment: Order Date: 08/31/23 Order Info: 785-04 - CMP Order Info: - LIPID Order Info: [id number] - TSH Result Comment: The drugs N-Acetylcysteine and Metamizole may falsely depress this assay. Reference Range HDL <40 mg/dL Low HDL Cholesterol HDL >or= 60 mg/dL High HDL Cholesterol Performed By: #### L 506.1000, L501.9520, L500.4100, L100.0100, L500.4050 #### [facility] [address] [place], [address] Cholesterol in LDL [Mass/Vol] 105 mg/dL Normal 0-130 [facility] Comment on above: Order Comment: Order Date: 08/31/23 Order Info: 785-04 - CMP Order Info: - LIPID Order Info: [id number] - TSH Performed By: #### L 506.1000, L501.9520, L500.4100, L100.0100, L500.4050 #### [facility] [address] [place], [address] Cholesterol in VLDL [Mass/Vol] 13 mg/dL Normal 5-40 [facility] Comment on above: Order Comment: Order Date: 08/31/23 Order Info: 785-04 - CMP Order Info: - LIPID Order Info: [id number] - TSH Performed By: #### L 506.1000, L501.9520, L500.4100, L100.0100, L500.4050 #### [facility] [address] [place], [address] Triglyceride [Mass/Vol] 66 mg/dL Normal [facility] Comment on above: Order Comment: Order Date: 08/31/23 Order Info: 0786-1 - CMP Order Info: [id number] - LIPID Order Info: 3016-3 - TSH Result Comment: The drugs N-Acetylcysteine and Metamizole may falsely depress this assay. Serum Triglycerides Reference Interval Normal <150 mg/dL Borderline high 150 - 199 mg/dL High 200 - 499 mg/dL Very High > or = 500 mg/dL Performed By: #### L 506.1000, L501.9520, L500.4100, L100.0100, L500.4050 #### [facility] [address] [place], [address] Thyroid Stim Hormone (TSH)on 09-02-2023 TSH 0.81 uIU/mL Normal 0.358-3.74 [facility] Comment on above: Order Comment: Order Date: 08/31/23 Order Info: 0786-1 - CMP Order Info: [id number] - LIPID Order Info: 3016-3 - TSH Performed By: #### L 506.1000, L501.9520, L500.4100, L100.0100, L500.4050 #### [facility] [address] [place], [address] Vitamin D,25 Hydroxyon 09-01 Vitamin D 25-OH 38.8 ng/mL Normal [facility] Comment on above: Order Comment: Order Date: 08/31/23 Order Info: [id number] - VITD25 Result Comment: [place] min D 25(OH) Status Range Deficiency <20 ng/mL (50nmol/L) Insufficiency 20 - 30 ng/mL (50 - 75 nmol/L) Sufficiency 30 - 100 ng/mL (75 - 250 nmol/L) Toxicity >100 ng/mL (>250 nmol/L) Performed By: #### L 506.1000, L501.9520, L500.4100, L100.0100, L500.4050 #### [facility] [address] [place], [address] Encounters Encounter Date Encounter Type Care Provider Facility Start: 02-13-2024 End: 02-13-2024 ambulatory [facility] Facility:[facility] Start: 12-19-2023 ambulatory [facility] Facility:[facility] Start: 10-27-2023 End: 10-27-2023 ambulatory [facility] Facility:[facility] Start: 10-10-2023 Encounter for gyneco logical examination (general) (routine) without abnormal findings Joann Vincent NP [facility] Start: 10-04-2023 End: 10-04-2023 ambulatory Joann Vincent NP Facility:[facility] Start: 09-02-2023 End: 09-02-2023 ambulatory Temi Galicia Facility:[facility] Payers Date Payer Category Payer Self-pay 2023 Unknown [id number] Unknown [id number] 2.16.8 [id number] Unknown [id number] 2.16.8 [id number] Unknown [id number] 2.16.8 [id number] Unknown [id number] 2.16.8 [id number] Unknown [id number] 2.16.8 [id number] Unknown [id number] 2.16.8 [id number] Clinical Note 02-13-2024 Note Date & Type Note Facility 02-13-2024 Note [facility] Medical Records Department [address] [place] [address] History Physical Exam 02/13/2433 MR#: [id number] Acct: [id number] Name: DEN NICHOLAS Rep #: [id number] : 1960 63 From: Leora Parekh MD PCP: Dr. Jose Guadalupe Blake MD Status:[facility] Location: [place] [address] HPI - General General Date of Service: 02/13/24 HPI Narrative DEN NICHOLAS, is a 63 F who presents for screening colonoscopy. Patient never had previous colonoscopy. Patient denies any family history of colon cancer. Patient denies any chronic abdominal pain/nausea/vomiting/reflux. Patient has bowel movements daily denies any blood. [facility] Medical History Wears glasses Post-menopausal Former smoker Hx of fracture of ankle Home Medications ???Medication ???Instructions ???Recorded ???Last Taken ???Type fexofenadine 60 mg-pseudoephedrine 1 tab PO DAILY 12/19/23 02/12/24 History ER 120 mg tablet,ext.release,12 hr (Johanna-D 12 Hour) Allergy/AdvReac Type Severity Reaction Status Date / Time No Known Allergies Allergy Verified 02/13/24 08:09 Social History household members: spouse number of children: 2 current occupational status: employed current occupation: [employer] Smoking Status: Former smoker alcohol intake: never substance use type: does not use Past Medical/Surgical History Planned Operation Planned Operative Procedure(s): CSCOPE OA Previous Hospitalizations/Surgeries HX Hospitalizations: No Any Problems With Anesthesia: No You/Your Family Experience Fever (Hyperthermia) With Anes: No Cholinesterase deficiency: No Cardiovascular Hx Hypertension: No Respiratory Hx Sleep Apnea: No Hx Respiratory Tract Infection/Cold (presently): No Do You Snore Loudly (louder than talking or can be heard): No Do You Often Feel Tired/ Fatigued/ Sleepy Dring Daytime?: No Has Anyone Observed You Stop Breathing During Sleep?: No Result (for STOP score): Negative Smoking Status: Former smoker Neurological Does patient have nerve stimulator: No Reproduction : No Miscellaneous Recent Exposure to Contagious Disease: No Allergies No Known Allergies Allergy (Verified 02/13/24 08:09) Discharge Is Pt Admitted From a Correction, or a Intermediate: No After D/C, Where Do you Plan to Go: Return Home Vital Signs Vital Signs Vital Signs: 02/13/24 08:10 Respiratory Pattern Normal Physical Exam Const alert, oriented x3 and no apparent distress HEENT normocephalic and head/scalp atraumatic Resp normal respiratory effort Cardio regular rate GI soft to palpation and non-tender; Negative for non-distended Palpation: Negative for guarding Extremity no clubbing, cyanosis or edema Skin no rashes or lesions noted Neuro CN's II-XII intact bilaterally Psych mental status grossly normal Assessment Plan Assessment/Plan (1) Encounter for screening for malignant neoplasm of colon: Surgery Risks - Colonoscopy I discussed with the patient the risks of the procedure: Yes Risks Include but are not Limited To: Risks include but are not limited to: Bleeding, perforation requiring further surgery, inability to complete colonoscopy requiring barium enema. 02/13/24 0839 Cosigner Signature (if applicable): CC: Dr. Jose Guadalupe Blake MD; Dr. Leora Parekh MD Signed [facility] Summary Purpose Family History No Family History Records Found Advance Directives No Advanced Directives Records Found Additional Source Comments INFORMATION SOURCE (unrecogn ized section and content) DATE CREATED AUTHOR 02/20/2024 [facility] FOR RECORDS PERTAINING TO PATIENTS WHO ARE OR HAVE BEEN ENROLLED IN A CHEMICAL DEPENDENCY/SUBSTANCEABUSE PROGRAM, SOME INFORMATION MAY BE OMITTED. This clinical summary was aggregated from multiple sources. Caution should be exercised in using it in the provision of clinical care. This summary normalizes information from multiple sources, and as a consequence, information in this document may materially change the coding, format and clinical context of patient data. In addition, data may be omitted in some cases. CLINICAL DECISIONS SHOULD BE BASED ON THE PRIMARY CLINICAL RECORDS. [employer] provides no warranty or guarantee of the accuracy or completeness of information in this document.
[2024-10-29 10:38] LABS: Hematocrit 37.5 % (37-47); Hemoglobin 12.3 g/dL (12.0-15.0); Immature Granulocytes Count 0.020 X10^3/uL (0.0-0.0); Mean Corp Hgb Conc 32.8 g/dL (32-36); Mean Corpuscular Volume 94.5 fL (81-99); Mean Platelet Vol. 9.9 fl (6.2-12.0); NRBC Flagged by Analyzer 0 % (0-5); Platelet Count 282 K/mm3 (150-450); RBC Distribution Width CV 12.6 % (11.6-14.6); RBC Distribution Width SD 44.0 fl (35.1-43.9); Red Blood Count 3.97 M/mm3 (4.2-5.4); White Blood Count 5.9 K/mm3 (4.4-11.0)
[2024-10-29 12:12] LABS: AST(SGOT) 22 U/L (<=31); Alanine Aminotransfer ALT/SGPT 20 U/L (<=34); Albumin, Serum 4.1 g/dL (3.4-4.8); Alkaline Phosphatase 75 U/L (35-104); Anion Gap 10 (5-15); BUN 13 mg/dL (4-19); BUN/Creat Ratio 19.2 RATIO (10-20); Calcium,Total 9.5 mg/dL (7.6-11.0); Carbon Dioxide 24.6 mmol/L (21.0-32.0); Chloride 106 mmol/L (98-108); Cholesterol 202 mg/dL (<=200); Globulin 3.6 g/dL (2.2-4.2); Glucose 101 mg/dL (70-99); Low Density Lipoprotein Calc. 111 mg/dL; Potassium 4.5 mmol/L (3.3-5.1); Triglycerides 98 mg/dL; Very Low Density Lipoprotein 20 mg/dL (5-40); cholesterol:hdl ratio screen 2.82
[2024-10-29 12:26] LABS: Vitamin D,25 Hydroxy 29.4 ng/mL (30-100)
== END 2024-10-29 23:59 | disposition home or self-care (01) ==
LOC: MFPLAB 08:08
PROVIDERS: PCP Family Medicine; Referring Provider Family Medicine; Visit Provider Family Medicine
DX: Z01.419 Encounter for gynecological examination (general) (routine) without abnormal findings (principal); Z13.1 Encounter for screening for diabetes mellitus; E78.5 Hyperlipidemia, unspecified; Z78.0 Asymptomatic menopausal state
CPT/HCPCS: 36415; 80053; 80061; 82306; 83036; 85025